=== PATIENT | female | born 1990 | race Caucasian/White ===

== ENCOUNTER 2017-07-18 09:01 | Emergency (ER) | payer OTHER ==
[~2017-07-18] VITALS: Ht 157.5 cm; Wt 65.0 kg
[2017-07-18 09:02] VITALS: Ht 157.5 cm; Wt 65.0 kg
[2017-07-18] MEDS ORDERED: SOD CHLORIDE 0.9% 1,000 ML IV STA (09:44)
[2017-07-18] MEDS ORDERED: ONDANSETRON 4 MG INJ IV STA (09:44)
[2017-07-18 10:08] LABS: BASOPHILS % 0.2 % (0.0-2.0); EOSINOPHILS # 0.1 10^3/ul (0.0-0.5); EOSINOPHILS % 0.7 % (0.0-7.0); HEMATOCRIT 42.4 % (37.0-47.0); HEMOGLOBIN 14.4 g/dl (12.0-16.0); LYMPHOCYTES # 0.7 10^3/ul (0.8-2.9); LYMPHOCYTES % 3.8 % (15.0-51.0); MEAN CORPUSCULAR HEMOGLOBIN 29.1 pg (29.0-33.0); MEAN CORPUSCULAR VOLUME 85.7 fl (82.0-101.0); MEAN PLATELET VOLUME 9.9 fl (7.4-10.4); MONOCYTE # 0.9 10^3/ul (0.3-0.9); MONOCYTES % 4.9 % (0.0-11.0); NEUTROPHIL # 15.5 10^3/ul (1.6-7.5); NEUTROPHILS % 90.1 % (39.0-77.0); PLATELET COUNT 342 10^3/UL (140-415); RED BLOOD COUNT 4.95 10^6/ul (4.20-5.40); RED CELL DISTRIBUTION WIDTH 12.2 % (11.5-14.5); WHITE BLOOD COUNT 17.2 10^3/ul (4.8-10.8)
[2017-07-18 10:12] LABS: ADD UMIC YES; UR ASCORBIC ACID 40 mg/dL (NEGATIVE); UR BILIRUBIN (Dip) NEGATIVE (NEGATIVE); UR BLOOD (Dip) NEGATIVE (NEGATIVE); UR CLARITY SLIGHTLY CLOUDY (CLEAR); UR COLOR YELLOW (YELLOW); UR GLUCOSE (Dip) NEGATIVE (NEGATIVE); UR KETONES (Dip) TRACE mg/dL (NEGATIVE); UR LEUKOCYTE ESTERASE (Dip) 1+ Leu/ul (NEGATIVE); UR MUCUS FEW /HPF (NONE SEEN); UR NITRITE (Dip) NEGATIVE (NEGATIVE); UR RBC 1 /HPF (0-5); UR SPECIFIC GRAVITY (Dip) 1.024 (1.003-1.030); UR SQUAMOUS EPITHELIAL CELL FEW /HPF (FEW); UR TOTAL PROTEIN (Dip) NEGATIVE (NEGATIVE); UR UROBILINOGEN (Dip) NEGATIVE (NEGATIVE)
[2017-07-18 10:42] LABS: ALBUMIN 4.8 g/dl (3.3-4.9); ALBUMIN/GLOBULIN RATIO 1.29; BILIRUBIN,INDIRECT 0.6 mg/dl (0-1.1); BILIRUBIN,TOTAL 0.6 mg/dl (0.2-1.3); CALCIUM 9.8 mg/dl (8.4-10.2); CREATININE 0.76 mg/dl (0.44-1.00); POTASSIUM 4.3 mmol/L (3.5-5.1); TOTAL PROTEIN 8.5 g/dl (6.1-8.1)
--- NOTE | 2017-07-18 11:00 | RADRPT ---
PROCEDURE: CT ABDOMEN AND PELVIS WITHOUT CONTRAST. CLINICAL INDICATION: Abdominal pain TECHNIQUE: CT scan of the abdomen and pelvis without contrast was performed on a multidetector hig h-resolution CT scanner. The patient was scanned without intravenous contrast. Coronal and sagittal reformatted images were obtained from the axial source images. Images were reviewed on a high-resol [employer] PACS workstation. The total exam CTDI equals 5.2 mGy and the total exam DLP equals 262.5 mGy-c m. One or more of the following dose reduction techniques were used: Automated exposure control. Adjustment of the mA and/or kV according to patient size. Use of iterative reconstruction technique. DICOM images are available COMPARISON: None FINDINGS: CT abdomen: The lung bases are clear. The heart size is within limits. There is no significant pericardial effus ion. Hepatic morphology is within limits. No gross contour deforming masses. The gallbladder is not visua lized. No evidence of intrahepatic or extrahepatic dilatation. The spleen and pancreas are within normal limits. Both adrenal glands are within normal limits. Both kidneys are in normal anatomic position. No evidence of obstruction or hydronephrosis. No gross renal/ureteric calculi. The visualized GI tract demonstrate normal caliber loops of small and large bowel. No evidence of eddie wel obstruction. The appendix is within normal limits. The unenhanced aorta is unremarkable. No significant retroperitoneal lymphadenopathy. CT pelvis: The bladder is within normal limits. The rectosigmoid colon is within normal limits. No significant free fluid. No pelvic lymphadenopathy. The uterus is unremarkable. The visualized osseous structures appears to within normal limits. IMPRESSION: 1. No evidence of bowel obstruction. The appendix is within normal limits. Several fluid filled loop s of small bowel which may represent mild gastroenteritis. 2. No evidence of free fluid or free air. No gross focal fluid collections. Remainder of the unenha nced CT scan abdomen/pelvis is unremarkable. RPTAT: AAPP Physician Stephany Date Time Electronically viewed and signed by Physician Stephany on 07/18/2017 11:00 VITO/
[2017-07-18] MEDS ORDERED: ONDA4TAB14 PO (11:07)
[2017-07-18] MEDS ORDERED: DICY10CA60 PO (11:08)
--- NOTE | 2017-07-18 11:15 | ERD ---
ER Documentation Chief Complaint Chief Complaint NAUYSEA, DIARRHEA SINCE LAST NIGHT HPI Patient is a 27-year-old female presents ED for concerns of tactile fevers, nausea, vomiting and diarrhea which started last night. Patient states she ate [employer] Terrell yesterday. Patient states the proximal by 2 hours after eating [employer] she started to have severe abdominal pain, nausea and vomiting. Patient reports 2-3 episodes of nonbloody nonbilious vomiting. Patient states she developed diarrhea. Patient states she was having diarrhea throughout the night. Patient presently is 4-5 episodes of nonbloody, watery, brown stools. Patient admits to tactile fevers. Patient denies any recent antibiotic use. Patient denies any recent travel. Patient denies any chest pain, shortness of breath, neck pain, neck stiffness, dysuria, frequency or urgency. Patient states her last mental period was approximately 1 month ago does not recall exact date. ROS All systems reviewed and are negative except as per history of present illness. Medications Home Meds Active Scripts Dicyclomine Hcl* (Bentyl*) 10 Mg Capsule, 10 MG PO QID, #15 CAP Prov:YOSELYN CHAVEZ PA-C 07/18/17 Ondansetron (Ondansetron Odt) 4 Mg Tab.rapdis, 4 MG PO Q6H Y for NAUSEA AND/OR VOMITING, #10 TAB Prov:YOSELYN CHAVEZ PA-C 07/18/17 Allergies Allergies: Coded Allergies: No Known Allergy (Unverified , 07/18/17) PMhx/Soc Medical and Surgical Hx: pt denies Medical Hx, pt denies Surgical Hx History of Surgery: Yes (RT FOOT ) Hx Alcohol Use: No Hx Substance Use: No Hx Tobacco Use: No Smoking Status: Never smoker Physical Exam Vitals Vital Signs Date Time Temp Pulse Resp B/P Pulse Ox O2 Delivery O2 Flow Rate FiO2 07/18/17 09:02 98.3 71 29 118/71 99 Physical Exam GENERAL: Well-developed, well-nourished female. Appears in no acute distress. HEAD: Normocephalic, atraumatic. EYES: Pupils are equally reactive bilaterally. EOMs grossly intact. No conjunctival erythema. ENT: Moist mucous membranes. No uvula deviation. No kissing tonsils. NECK: Supple. No meningismus. Normal range of motion of the neck. LUNG: Clear to auscultation bilaterally. No rhonchi, wheezing, rales or coarse breath sounds. HEART: Regular rate and rhythm. No murmurs, rubs or gallops. ABDOMEN:. Soft, and nondistended. Diffuse tenderness throughout the abdomen. Slightly guarding. No rebound. Positive bowel sounds in all four quadrants. (- ) McBurney's point tenderness. No CVA tenderness. BACK: No midline tenderness. EXTREMITIES: Equal pulses bilaterally. No peripheral clubbing, cyanosis or edema. No unilateral leg swelling. NEUROLOGIC: Alert and oriented. Moving all four extremities without any difficulty. Normal speech. Steady gait. SKIN: Normal color. Warm and dry. No rashes or lesions. Result Diagram: 07/18/1755 07/18/17 0955 Results 24 hrs Laboratory Tests Test 07/18/17 09:55 White Blood Count 17.210^3/ul Red Blood Count 4.9510^6/ul Hemoglobin 14.4g/dl Hematocrit 42.4% Mean Corpuscular Volume 85.7fl Mean Corpuscular Hemoglobin 29.1pg Mean Corpuscular Hemoglobin Concent 34.0g/dl Red Cell Distribution Width 12.2% Platelet Count 44366^3/UL Mean Platelet Volume 9.9fl Neutrophils % 90.1% Lymphocytes % 3.8% Monocytes % 4.9% Eosinophils % 0.7% Basophils % 0.2% Nucleated Red Blood Cells % 0.0/100WBC Neutrophils # 15.510^3/ul Lymphocytes # 0.710^3/ul Monocytes # 0.910^3/ul Eosinophils # 0.110^3/ul Basophils # 0.010^3/ul Nucleated Red Blood Cells # 0.010^3/ul Urine Color YELLOW Urine Clarity SLIGHTLY CLOUDY Urine pH 5.0 Urine Specific [place] 1.024 Urine Ketones TRACEmg/dL Urine Nitrite NEGATIVEmg/dL Urine Bilirubin NEGATIVEmg/dL Urine Urobilinogen NEGATIVEmg/dL Urine Leukocyte Esterase 1+Wilbert/ul Urine Microscopic RBC 1/HPF Urine Microscopic WBC 1/HPF Urine Squamous Epithelial Cells FEW/HPF Urine Mucus FEW/HPF Urine Hemoglobin NEGATIVEmg/dL Urine Glucose NEGATIVEmg/dL Urine Total Protein NEGATIVEmg/dl Sodium Level 143mmol/L Potassium Level 4.3mmol/L Chloride Level 105mmol/L Carbon Dioxide Level 24mmol/L Anion Gap 18 Blood Urea Nitrogen 13mg/dl Creatinine 0.76mg/dl Glucose Level 100mg/dl Calcium Level 9.8mg/dl Total Bilirubin 0.6mg/dl Direct Bilirubin 0.00mg/dl Indirect Bilirubin 0.6mg/dl Aspartate Amino Transf (AST/SGOT) 30IU/L Alanine Aminotransferase (ALT/SGPT) 34IU/L Alkaline Phosphatase 44IU/L Total Protein 8.5g/dl Albumin 4.8g/dl Globulin 3.70g/dl Albumin/Globulin Ratio 1.29 Lipase 246U/L Current Medications Medications (Trade) Dose Ordered Sig/Renaldo Route PRN Reason Start Time Stop Time Status Last Admin Dose Admin Sodium Chloride (NS) 1,000 ml @ 1,000 mls/hr Q1H STAT IV 07/18/17 09:44 07/18/17 10:43 DC 07/18/17 10:02 Ondansetron HCl (Zofran Inj) 4 mg ONCE STAT IV 07/18/17 09:44 07/18/17 09:46 DC 07/18/17 10:02 Procedures/MDM ED COURSE: The patient was stable throughout ED course. I kept the patient and/or family informed of laboratory and diagnostic imaging results throughout the ED course. DIAGNOSTIC IMAGING: Read by radiologist. Patient: LBAYNE CHAN : 1990 Age: 27 Sex: F MR #: [id number] DOS: 07/18/17 1019 Ordering MD: YOSELYN CHAVEZ PA-C Location: [facility] Room/Bed: PROCEDURE: CT ABDOMEN AND PELVIS WITHOUT CONTRAST. CLINICAL INDICATION: Abdominal pain TECHNIQUE: CT scan of the abdomen and pelvis without contrast was performed on a multidetector high-resolution CT scanner. The patient was scanned without intravenous contrast. Coronal and sagittal reformatted images were obtained from the axial source images. Images were reviewed on a high-resolution PACS workstation. The total exam CTDI equals 5.2 mGy and the total exam DLP equals 262.5 mGy-cm. One or more of the following dose reduction techniques were used: Automated exposure control. Adjustment of the mA and/or kV according to patient size. Use of iterative reconstruction technique. DICOM images are available COMPARISON: None FINDINGS: CT abdomen: The lung bases are clear. The heart size is within limits. There is no significant pericardial effusion. Hepatic morphology is within limits. No gross contour deforming masses. The gallbladder is not visualized. No evidence of intrahepatic or extrahepatic dilatation. The spleen and pancreas are within normal limits. Both adrenal glands are within normal limits. Both kidneys are in normal anatomic position. No evidence of obstruction or hydronephrosis. No gross renal/ureteric calculi. The visualized GI tract demonstrate normal caliber loops of small and large bowel. No evidence of bowel obstruction. The appendix is within normal limits. The unenhanced aorta is unremarkable. No significant retroperitoneal lymphadenopathy. CT pelvis: The bladder is within normal limits. The rectosigmoid colon is within normal limits. No significant free fluid. No pelvic lymphadenopathy. The uterus is unremarkable. The visualized osseous structures appears to within normal limits. IMPRESSION: 1. No evidence of bowel obstruction. The appendix is within normal limits. Several fluid filled loops of small bowel which may represent mild gastroenteritis. 2. No evidence of free fluid or free air. No gross focal fluid collections. Remainder of the unenhanced CT scan abdomen/pelvis is unremarkable. RPTAT: AAPP Physician Stephany Date Time Electronically viewed and signed by Physician Stephany on 07/18/2017 11:00 JL/ CC: YOSELYN CHAVEZ PA-C PROCEDURES: None. MEDICATIONS GIVEN: IV fluids, Zofran Patient tolerated medication well with no adverse reactions. MEDICAL DECISION MAKING: This is a 27-year-old female presents with nausea, vomiting, diarrhea and diffuse abdominal pain 1 day. Patient does admit to tactile fevers at home.. Vital signs were reviewed. Patient is afebrile. CBC showed no evidence of severe anemia. Patient's WBC count was noted to be 17.2. CMP showed no evidence of electrolyte abnormalities, severe acidosis, alkalosis , renal failure, or liver disease. Lipase showed no evidence of acute pancreatitis. UA showed no evidence of acute infection or hematuria. test is negative. CT abdomen and pelvis without IV contrast showed 1. No evidence of bowel obstruction. The appendix is within normal limits. Several fluid filled loops of small bowel which may represent mild gastroenteritis. 2. No evidence of free fluid or free air. No gross focal fluid collections. Remainder of the unenhanced CT scan abdomen/pelvis is unremarkable. Patient was given IV fluids and Zofran here in the ED. Patient reports significant improvement in symptoms prior to discharge. Patient's presentation is most consistent with acute gastroenteritis. Low suspicion for ACS, mesenteric ischemia, DKA, bowel perforation, bowel obstruction, cholecystitis, hepatic abscess, pancreatitis, diverticulitis, UTI, pyelonephritis, nephrolithiasis, appendicitis, constipation, . PRESCRIPTIONS: Zofran, Bentyl DISCHARGE: At this time, patient is stable for discharge and outpatient management. She was given copy of all imaging studies and blood work obtained today. Patient was given a work note. I have instructed the patient to follow-up with his/her primary care physician in 1-2 days. I have instructed the patient to promptly return to the ER at any time for any new or worsening symptoms including increased pain, nausea, vomiting, diarrhea, fever, weakness or LOC. The patient and/or family expressed understanding of and agreement with this plan. All questions were answered. Home care instructions were provided. Disclaimer: Inadvertent spelling and grammatical errors are likely due to EHR/ dictation software use and do not reflect on the overall quality of patient care. Also, please note that the electronic time recorded on this note does not necessarily reflect the actual time of the patient encounter. Departure Diagnosis: Primary Impression: Gastroenteritis Condition: Stable Patient Instructions: Food Poisoning Or Gastroenteritis (6Y-Adult) Referrals: [facility] YOU HAVE RECEIVED A MEDICAL SCREENING EXAM AND THE RESULTS INDICATE THAT YOU DO NOT HAVE A CONDITION THAT REQUIRES URGENT TREATMENT IN THE EMERGENCY DEPARTMENT. FURTHER EVALUATION AND TREATMENT OF YOUR CONDITION CAN WAIT UNTIL YOU ARE SEEN IN YOUR DOCTORS OFFICE WITHIN THE NEXT 1-2 DAYS. IT IS YOUR RESPONSIBILITY TO MAKE AN APPOINTMENT FOR FOLOW-UP CARE. IF YOU HAVE A PRIMARY DOCTOR --you should call your primary doctor and schedule an appointment IF YOU DO NOT HAVE A PRIMARY DOCTOR YOU CAN CALL OUR PHYSICIAN REFERRAL HOTLINE AT IF YOU CAN NOT AFFORD TO SEE A PHYSICIAN YOU CAN CHOSE FROM THE FOLLOWING [facility] [address] [facility]. [facility] [address] [facility] [address] [facility] [address] [facility] [address] [facility]. [facility]. [address] [facility]. [facility] YOU HAVE RECEIVED A MEDICAL SCREENING EXAM AND THE RESULTS INDICATE THAT YOU DO NOT HAVE A CONDITION THAT REQUIRES URGENT TREATMENT IN THE EMERGENCY DEPARTMENT. FURTHER EVALUATION AND TREATMENT OF YOUR CONDITION CAN WAIT UNTIL YOU ARE SEEN IN YOUR DOCTORS OFFICE WITHIN THE NEXT 1-2 DAYS. IT IS YOUR RESPONSIBILITY TO MAKE AN APPOINTMENT FOR FOLOW-UP CARE. IF YOU HAVE A PRIMARY DOCTOR --you should call your primary doctor and schedule and appointment IF YOU DO NOT HAVE A PRIMARY DOCTOR YOU CAN CALL OUR PHYSICIAN REFERRAL HOTLINE AT . IF YOU CAN NOT AFFORD TO SEE A PHYSICIAN YOU CAN CHOSE FROM THE FOLLOWING [facility] INSTITUTIONS: [facility] [address] [place] [address] [facility] [address] [place] [address] [facility] [address] [place] [address] Additional Instructions: Call your primary care doctor TOMORROW for an appointment during the next 1-2 days.See the doctor sooner or return here if your condition worsens before your appointment time. YOSELYN CHAVEZ PA-C Jul 18, 2017 11:15
[2017-07-18 11:18] VITALS: BP 122/67; PULSE 76; RESP 18; TEMP 98.2
== END 2017-07-18 11:19 | disposition home or self-care (01) ==
LOC: FTE 09:01
DX: K52.9 Noninfective gastroenteritis and colitis, unspecified (principal)
CPT/HCPCS: 74176; 80053; 81001; 83690; 85025; 96374; 99285; J2405; J7030